=== PATIENT | female | born 1980 | race Caucasian/White ===

== ENCOUNTER 2018-02-16 22:43 | Emergency (ER) | payer SELFPAY ==
[2018-02-16] MEDS ORDERED: NS 1,000 ML IV ONE (23:12)
--- NOTE | 2018-02-16 23:12 | EDPHY ---
H & P Stated Complaint: Syncope approx 15 secs just FRAME HAND. Was feeling nausea/dizzy while doing dishe Time Seen by Provider: 02/16/18 23:07 HPI/ROS: HPI: This is a 29-year-old female who presents with Chief Complaint: Syncope approx 15 secs just FRAME HAND. Was feeling nausea/dizzy while doing dishe Location: body Quality: Fainting episode Duration: Prior to arrival Signs and Symptoms: no fever, no nausea, no vomiting, no photophobia, no noise sensitivity, no neck stiffness, no ear pain, no tinnitus, no nasal congestion, no sinus pressure, no weakness, no radiation, no aura Timing:acute, resolved Severity: [id number] Context: Patient presents accompanied by her friend that she just arrived from called back to visit friends here in [place] for the next 10 days. She arrived approximately 2 hr prior to arrival to the emergency room. She reports that she drank 2 glasses of wine while on the plane. Lasting washing the dishes she started to feel lightheaded and had a warm feeling that went over her body accompanied by nausea. Patient then went to sit down in a chair in the living room and started to sway so her friend quickly went to her side and caught her from falling. Her friend slowly lowered her to the ground. She only had loss of consciousness for approximately 10-15 seconds. Patient reports that this has happened several times in the past when she does not eat or drink enough throughout the day. She denies any drug use/chest pain/shortness of breath/ abdominal pain. LMP 2 weeks ago. Patient reports that she has only eaten toast for breakfast and carrots today. She reluctantly admits she has drank no water today. Modifying Factors: None Comment: ROS: A comprehensive 10 system review of systems is otherwise negative aside from elements mentioned in the history of present illness. MEDICAL/SURGICAL/SOCIAL HISTORY: Medical history: Generally healthy. Does not take any regular medications. Surgical history: Denies Social history: Nonsmoker. Family history noncontributory. CONSTITUTIONAL: Extremely polite and cooperative well-appearing middle-aged female, awake and alert, no obvious distress HEENT: Atraumatic and normocephalic, PERRL, EOMI. Nares patent; no rhinorrhea; no nasal mucosal edema. Tympanic membranes clear. Oropharynx clear, no exudate and moist pink mucosa. Airway patent. No lymphadenopathy. No meningismus. Cardiovascular: Normal S1/S2, regular rate, regular rhythm, without murmur rub or gallop. PULMONARY/CHEST: Symmetrical and nontender. Clear to auscultation bilaterally. Good air movement. No accessory muscle usage. ABDOMEN: Soft, nondistended, nontender, no rebound, no guarding, no peritoneal signs, no masses or organomegaly. No CVAT. EXTREMITIES: 2/2 pulses, strength 5/5, no deformities, no clubbing, no cyanosis or edema. NEUROLOGICAL: no focal neuro deficits. GCS 15. SKIN: Warm and dry, no erythema. no rash. Good capillary refill. Source: Patient Exam Limitations: No limitations - Personal History LMP (Females 10-55): 15-21 Days Ago Current Tetanus Diphtheria and Acellular Pertussis (TDAP): No - Medical/Surgical History Hx Asthma: No Hx Chronic Respiratory Disease: No Hx Diabetes: No Hx Cardiac Disease: No Hx Renal Disease: No Hx Cirrhosis: No Hx Alcoholism: No Hx HIV/AIDS: No Hx Splenectomy or Spleen Trauma: No - Social History Smoking Status: Never smoked Constitutional: Initial Vital Signs Temperature (C) 37.3 C 02/16/18 22:54 Heart Rate 60 02/16/18 22:54 Respiratory Rate 16 02/16/18 22:54 Blood Pressure 118/73 02/16/18 22:54 O2 Sat (%) 98 02/16/18 22:54 O2 Delivery Mode Room Air Allergies/Adverse Reactions: No Known Allergies Allergy (Unverified 02/16/18 22:53) Home Medications: Medication Instructions Recorded NK [No Known Home Meds] 02/16/18 Medical Decision Making - Diagnostics EKG Interpretation: 12 lead EKG: Indication: Syncope Rhythm: Normal sinus rhythm, rate of 56 beats per minute [place]: Normal Intervals: Normal QRS: Normal ST segments: Normal INTERPRETATION: No acute ischemic changes, no arrhythmias The 12 lead EKG was interpreted by myself and with attending. ED Course/Re-evaluation: EKG, labs, IV fluids, orthostatics EKG shows no arrhythmia, no ischemic changes. 2340: Notified by [employer] that TROP 0.01 labs reviewed. No signs of leukocytosis/anemia/platelet dysfunction/SALVADOR/ electrolyte imbalance/ACS//alcohol withdrawal seizures. 0010: Passed road test without any difficulty. Advised supportive care. I suspect the patient did not eat or drink enough today combined with travel and elevation change caused her near syncopal episodes. This patient was seen under the supervision of my secondary supervising physician. I evaluated care for this patient independently. Discussed this patient with Dr. Ponce. Differential Diagnosis: Syncope including but not limited to vasovagal syncope, arrhythmia, dehydration , and blood loss. - Data Points Laboratory Results: Laboratory Results 02/16/18 23:23 02/16/18 23:23 02/16/18 02/16/18 02/16/18 23:30 23:23 23:23 WBC RBC Hgb Hct MCV MCH MCHC RDW Plt Count MPV Neut % (Auto) Lymph % (Auto) [place] % (Auto) Eos % (Auto) Baso % (Auto) Nucleat RBC Rel Count Absolute Neuts (auto) Absolute Lymphs (auto) Absolute Monos (auto) Absolute Eos (auto) Absolute Basos (auto) Absolute Nucleated RBC Immature Gran % Immature Gran # Sodium 139 mEq/L mEq/L (135-145) Potassium 3.7 mEq/L mEq/L (3.3-5.0) Chloride 101 mEq/L mEq/L (97-110) Carbon Dioxide 28 mEq/l mEq/l (22-31) Anion Gap 10 mEq/L mEq/L (8-16) BUN 21 mg/dL mg/dL (7-23) Creatinine 0.7 mg/dL mg/dL (0.6-1.0) Estimated GFR > 60 Glucose 107 mg/dL H mg/dL (70-100) Calcium 9.6 mg/dL mg/dL (8.5-10.4) POC Troponin I 0.01 ng/mL ng/mL (0.00-0.08) Beta HCG, Qual NEGATIVE Ethyl Alcohol < 10 mg/dL mg/dL (0-10) 02/16/18 23:23 WBC 6.67 10^3/uL 10^3/uL (3.80-9.50) RBC 4.13 10^6/uL L 10^6/uL (4.18-5.33) Hgb 12.6 g/dL g/dL (12.6-16.3) Hct 37.7 % L % (38.0-47.0) MCV 91.3 fL fL (81.5-99.8) MCH 30.5 pg pg (27.9-34.1) MCHC 33.4 g/dL g/dL (32.4-36.7) RDW 12.7 % % (11.5-15.2) Plt Count 182 10^3/uL 10^3/uL (150-400) MPV 11.2 fL fL (8.7-11.7) Neut % (Auto) 41.3 % % (39.3-74.2) Lymph % (Auto) 50.2 % H % (15.0-45.0) [place] % (Auto) 6.9 % % (4.5-13.0) Eos % (Auto) 0.9 % % (0.6-7.6) Baso % (Auto) 0.6 % % (0.3-1.7) Nucleat RBC Rel Count 0.0 % % (0.0-0.2) Absolute Neuts (auto) 2.75 10^3/uL 10^3/uL (1.70-6.50) Absolute Lymphs (auto) 3.35 10^3/uL H 10^3/uL (1.00-3.00) Absolute Monos (auto) 0.46 10^3/uL 10^3/uL (0.30-0.80) Absolute Eos (auto) 0.06 10^3/uL 10^3/uL (0.03-0.40) Absolute Basos (auto) 0.04 10^3/uL 10^3/uL (0.02-0.10) Absolute Nucleated RBC 0.00 10^3/uL 10^3/uL (0-0.01) Immature Gran % 0.1 % % (0.0-1.1) Immature Gran # 0.01 10^3/uL 10^3/uL (0.00-0.10) Sodium Potassium Chloride Carbon Dioxide Anion Gap BUN Creatinine Estimated GFR Glucose Calcium POC Troponin I Beta HCG, Qual Ethyl Alcohol Medications Given: Discontinued Medications Sodium Chloride (Ns) 1,000 mls @ 0 mls/hr IV ONCE ONE; Wide Open PRN Reason: Protocol Stop: 02/16/18 23:13 Last Admin: 02/16/18 23:31 Dose: 1,000 mls Point of Care Test Results: Chemistry 02/16/18 23:30 POC Troponin I 0.01 ng/mL ng/mL (0.00-0.08) Departure - Departure Disposition: Home, Routine, Self-Care Clinical Impression: Near syncope Condition: Good Instructions: Near Syncope (ED) Additional Instructions: Consume a minimum of 8-10 glasses of water or electrolyte fluid replacement drinks that include Gatorade, Powerade, Pedialyte. Refrain from using alcohol or drugs. Rest as much as possible until you are feeling better. Consume 2-3 meals per day. Referrals: [facility],. [Clinic] - As per Instructions
[2018-02-16 23:32] LABS: PLATELET COUNT 182 10^3/uL (150-400)
[2018-02-17 00:22] VITALS: BP 97/58
--- NOTE | 2018-02-19 05:47 | CPEKG ---
Test Reason : OPEN Blood Pressure : / mmHG Vent. Rate : 056 BPM Atrial Rate : 056 BPM P-R Int : 141 ms QRS Dur : 089 ms QT Int : 429 ms P-R-T Axes : 016 055 041 degrees QTc Int : 415 ms Sinus rhythm Consider left ventricular hypertrophy Confirmed by Clovis Ponce ([id number]) on 02/19/2018 5:47:02 AM Referred By: Confirmed By:Clovis Ponce
== END 2018-02-17 00:21 | disposition home or self-care (01) ==
DX: R55 Syncope and collapse (principal); E86.9 Volume depletion, unspecified
CPT/HCPCS: 84484-PO; G0480